=== PATIENT | female | born 1970 | race African-American/Black ===

== ENCOUNTER 2019-02-01 08:22 | Day surgery (SDC) | payer OTHER ==
[~2019-02-01] VITALS: Ht 157.5 cm; Wt 63.6 kg
[~2019-02-01 08:22] MED LIST: CHOL50004 PO; RANI150T7 PO
[2019-02-01] MEDS ORDERED: METOPROLOL TARTRATE 50 MG TABLET PO PRN (08:45)
[2019-02-01] MEDS ORDERED: METOPROLOL TARTRATE 50 MG TABLET ONE (08:55)
[2019-02-01] MEDS ORDERED: 0.9% SODIUM CHLORIDE 10 ML SYRINGE IVP PRN (09:00)
[2019-02-01 09:05] LABS: ANION GAP 8 mmol/L (8-16); CALCIUM, TOTAL 9.7 mg/dL (8.8-10.5); CARBON DIOXIDE 25 mmol/L (22-29); CHLORIDE 104 mmol/L (98-107); CREATININE 0.85 mg/dL (0.60-1.30); GLOMERULAR FILTR. RATE CALC > 60 mL/min (>60); GLUCOSE,RANDOM 108 mg/dL (70-110); POTASSIUM 3.8 mmol/L (3.5-5.1); SODIUM SERUM 137 mmol/L (136-145); UREA NITROGEN, BLOOD 12 mg/dL (7-18)
[2019-02-01] MEDS ORDERED: METOPROLOL TARTRATE 5 MG/5 ML VIAL IVP ONE (09:45)
[2019-02-01] MEDS ORDERED: IOVERSOL 350 MG/ML 150 ML VIAL ONE (10:49)
[2019-02-01] MEDS ORDERED: SODIUM CHLORIDE 0.9% 100 ML ONE (10:49)
[2019-02-01] MEDS ORDERED: METOPROLOL TARTRATE 5 MG/5 ML VIAL ONE ×2 (10:53→11:30)
[2019-02-01] MEDS ORDERED: NITROGLYCERIN 400 MCG/SUBLINGUAL SPRAY 4.9 GM BOTTLE SL ONE (10:53)
== END 2019-02-01 12:05 | disposition home or self-care (01) ==
LOC: SURGERY 08:22 → EDSTATUS 10:30 → SURGERY 12:05
PROVIDERS: ATTEND Nutritionist Nutrition, Education
DX: R07.9 Chest pain, unspecified (principal); K21.9 Gastro-esophageal reflux disease without esophagitis; Z98.890 Other specified postprocedural states; F17.210 Nicotine dependence, cigarettes, uncomplicated; Z72.89 Other problems related to lifestyle; Z79.899 Other long term (current) drug therapy
CPT/HCPCS: 36415; 75574; 80048; 84703; 93005; J3490; J7050; Q9967